=== PATIENT | female | born 1990 | race Caucasian/White ===

== ENCOUNTER → 2017-11-12 | Emergency (ER) | payer OTHER ==
[~2017-11-12] VITALS: Ht 152.4 cm; Wt 104.3 kg
[~2017-11-12] MED LIST: AMOX1TAB12 PO; AUGMENTIN125 MG/5 M; CEFADROXIL500 MG PO; CODE1TAB37 PO; COLACE100 MG PO; Colace 100MG PO; FLAGYL500MG PO; INTEGRA PLUS C1 EACH PO; INTESTINEX680 MG PO; KETO10TA2 PO; MOTRIN800 MG PO; MYLICON 125MG125 MG PO; ORPH100T PO; PEPCID40 MG PO; PERCOCET 5-3251 EACH PO; PERCOCET 5/3251 TAB PO; ULTRACET PO; ZOFRAN4 MG PO; [UNRECOGNIZED DRUG - REMARK]
== END | disposition home or self-care (01) ==
LOC: ER 13:42
DX: B34.9 Viral infection, unspecified (principal); J09.X2 Influenza due to identified novel influenza A virus with other respiratory manifestations

== ENCOUNTER 2018-10-16 16:24 | Emergency (ER) | payer OTHER ==
[~2018-10-16] VITALS: Ht 152.4 cm; Wt 102.1 kg
== END 2018-10-17 15:47 | disposition home or self-care (01) ==
LOC: ER 16:24
DX: D64.89 Other specified anemias (principal)
CPT/HCPCS: 93005; 36430 ×2; 86904 ×2; 86922 ×2; P9021 ×2; 76830

== ENCOUNTER 2018-11-20 09:45 | Inpatient (IN) | payer OTHER ==
[~2018-11-20] VITALS: Ht 152.4 cm; Wt 102.5 kg
[~2018-11-20 09:45] MED LIST changes: +MAXFE CAPLET1 EACH PO; +MEGESTROL ACETA40 MG PO
[2018-11-27] MEDS ORDERED: POLY119PG PO (07:00)
[2018-11-27] MEDS ORDERED: IBUPROFEN800 MG PO (07:00)
[2018-11-27] MEDS ORDERED: GABAPENTIN600 MG PO (07:00)
[2018-11-27] MEDS ORDERED: GAS RELIEF125 MG PO (07:00)
== END 2018-11-27 08:55 | DRG 743 ==
LOC: O/R 11-25 05:35 → OB/GYN 11-25 05:35 → O/R 11-25 13:36 → OB/GYN 11-25 13:40
PROVIDERS: ADMIT Obstetrics & Gynecology
PROC: 0UT70ZZ Resection of Bilateral Fallopian Tubes, Open Approach (ICD-10-PCS; 2018-11-25)
PROC: 0UT90ZZ Resection of Uterus, Open Approach (ICD-10-PCS; principal; 2018-11-25 07:00)
DX: D25.1 Intramural leiomyoma of uterus (principal); N72 Inflammatory disease of cervix uteri; D64.89 Other specified anemias

== ENCOUNTER 2019-07-26 22:34 | Emergency (ER) | payer OTHER ==
[~2019-07-26] VITALS: Ht 152.4 cm; Wt 99.8 kg
[~2019-07-26 22:34] MED LIST changes: +GABAPENTIN600 MG PO; +GAS RELIEF125 MG PO; +IBUPROFEN800 MG PO; +POLY119PG PO
[2019-07-27] MEDS ORDERED: PEPCID AC20 MG PO (03:59)
== END 2019-07-27 04:44 | disposition home or self-care (01) ==
LOC: ER 22:34
DX: R10.11 Right upper quadrant pain (principal)